=== PATIENT | female | born 1970 | race Caucasian/White ===

== ENCOUNTER 2017-03-10 14:12 | Emergency (ER) | payer MEDICARE ==
[2017-03-10 14:50] LABS: CLARITY,URINE CLOUDY; COLOR,URINE YELLOW
[2017-03-10 14:51] LABS: BACTERIA,URINE FEW /HPF (0-FEW); BILIRUBIN,URINE NEG (NEG); GLUCOSE,URINE NEG (NEG); NITRITE,URINE POS (NEG); SQUAMOUS EPITHELIAL CELL,UR FEW /LPF; UROBILINOGEN,URINE 0.2 mg/dL (0.2 mg/dL); WBC,URINE >40 /HPF (0-4)
[2017-03-10] MEDS ORDERED: IV NORMAL SALINE 1,000ML 1,000 ML IV ONE (16:00)
--- NOTE | 2017-03-10 16:08 | ED.ADGEN ---
Adult General Chief Complaint Chief Complaint Left flank pain HPI HPI Patient is a residual female with history of recurrent urinary tract infection presents with persistent left flank pain, urinary frequency urgency 2 days. Denies fever. Reports nausea denies vomiting. No hematuria or history of kidney stones. No recent antibiotics. Last menstrual period one month ago.[] Review of Systems Review of Systems Review symptoms as per history of present illness. All other review symptoms are negative. All other systems were reviewed and found to be within normal limits, except as documented in this note. Current Medications Current Medications Current Medications Medications (Trade) Dose Ordered Sig/Jeffery Start Time Stop Time Status Last Admin Dose Admin Ceftriaxone Sodium 1 gm/ Sodium Chloride 50 ml @ 100 mls/hr 1X ONCE 03/10/17 16:00 03/10/17 16:24 DC Ceftriaxone Sodium (Rocephin) 1 gm 1X ONCE 03/10/17 16:45 03/10/17 16:46 DC 03/10/17 16:36 1 GM Sodium Chloride 1,000 ml @ 1,000 mls/hr 1X ONCE 03/10/17 16:00 03/10/17 16:59 DC 03/10/17 16:33 1,000 MLS/HR Allergies Allergies Allergies Coded Allergies Type Severity Reaction Last Updated Verified acetaminophen Allergy Unknown 03/10/17 Yes propoxyphene Allergy Unknown 03/10/17 Yes Physical Exam Physical Exam Constitutional: Well developed, well nourished, discomfort secondary to pain.. [ ] HENT: Normocephalic, atraumatic, bilateral external ears normal, oropharynx moist, no oral exudates, nose normal. [] Eyes: PERRLA, EOMI, conjunctiva normal, no discharge. [] Neck: Normal range of motion, no tenderness, supple, no stridor. [] Cardiovascular:Heart rate regular rhythm, no murmur [] Lungs & Thorax: Bilateral breath sounds clear to auscultation [] Abdomen: Bowel sounds normal, soft, suprapubic pain, no rebound rigidity or guarding. [] Back: Left CVA tenderness. [] Extremities: No tenderness, no cyanosis, no clubbing, ROM intact, no edema. [] Neurologic: Alert and oriented X 3, normal motor function, normal sensory function, no focal deficits noted. [] Psychologic: Affect normal, judgement normal, mood normal. [] Current Patient Data Lab Results Laboratory Tests Test 03/10/17 14:30 03/10/17 15:50 03/10/17 16:20 03/10/17 17:00 Urine Collection Type Unknown Urine Color Yellow Urine Clarity Cloudy Urine pH 7.0 Urine Specific [place] 1.010 Urine Protein Neg (NEG-TRACE) Urine Glucose (UA) Neg mg/dL (NEG) Urine Ketones (Stick) Neg mg/dL (NEG) Urine Blood Mod (NEG) Urine Nitrite Pos (NEG) Urine Bilirubin Neg (NEG) Urine Urobilinogen Dipstick 0.2 mg/dL (0.2 mg/dL) Urine Leukocyte Esterase Small (NEG) Urine RBC 3-5 /HPF (0-2) Urine WBC >40 /HPF (0-4) Urine Squamous Epithelial Cells Few /LPF Urine Bacteria Few /HPF (0-FEW) POC Urine HCG, Qualitative hcg negative (Negative) White Blood Count 14.9 x10^3/uL (4.0-11.0) H Red Blood Count 4.20 x10^6/uL (3.50-5.40) Hemoglobin 13.7 g/dL (12.0-15.5) Hematocrit 39.4 % (36.0-47.0) Mean Corpuscular Volume 94 fL (79-100) Mean Corpuscular Hemoglobin 33 pg (25-35) Mean Corpuscular Hemoglobin Concent 35 g/dL (31-37) Red Cell Distribution Width 13.1 % (11.5-14.5) Platelet Count 188 x10^3/uL (140-400) Neutrophils (%) (Auto) 81 % (31-73) H Lymphocytes (%) (Auto) 10 % (24-48) L Monocytes (%) (Auto) 8 % (0-9) Eosinophils (%) (Auto) 1 % (0-3) Basophils (%) (Auto) 1 % (0-3) Neutrophils # (Auto) 12.1 x10^3uL (1.8-7.7) H Lymphocytes # (Auto) 1.4 x10^3/uL (1.0-4.8) Monocytes # (Auto) 1.2 x10^3/uL (0.0-1.1) H Eosinophils # (Auto) 0.1 x10^3/uL (0.0-0.7) Basophils # (Auto) 0.1 x10^3/uL (0.0-0.2) Sodium Level 138 mmol/L (136-145) Potassium Level 3.3 mmol/L (3.5-5.1) L Chloride Level 104 mmol/L (98-107) Carbon Dioxide Level 26 mmol/L (21-32) Anion Gap 8 (6-14) Blood Urea Nitrogen 5 mg/dL (7-20) L Creatinine 0.6 mg/dL (0.6-1.0) Estimated GFR (Cockcroft-Gault) 107.6 Glucose Level 98 mg/dL (70-99) Calcium Level 8.0 mg/dL (8.5-10.1) L EKG EKG [] Radiology/Procedures Radiology/Procedures [] Course & Med Decision Making Course & Med Decision Making Pertinent Labs and Imaging studies reviewed. (See chart for details) [Local pyelonephritis. IV fluids, antibiotics and pain medication given. KS considered but thought less likely. Symptomatically improvement. Lab work reviewed. Recommend continued supportive care, empiric therapy, PCP follow-up and watchful waiting. Return precautions reviewed.] Final Impression Final Impression [#1 left flank pain #2 pyelonephritis] Problems: Dragon Disclaimer Dragon Disclaimer This electronic medical record was generated, in whole or in part, using a voice recognition dictation system. KALI GRISSOM DO Mar 10, 2017 16:08
[2017-03-10 16:40] LABS: BASO # 0.1 x10^3/uL (0.0-0.2); BASO % 1 % (0-3); EOS # 0.1 x10^3/uL (0.0-0.7); EOS % 1 % (0-3); HEMATOCRIT 39.4 % (36.0-47.0); HEMOGLOBIN 13.7 g/dL (12.0-15.5); LYMPH # 1.4 x10^3/uL (1.0-4.8); LYMPH % 10 % (24-48); MEAN CORPUSCULAR HEMOGLOBIN 33 pg (25-35); MEAN CORPUSCULAR HGB CONC 35 g/dL (31-37); MEAN CORPUSCULAR VOLUME 94 fL (79-100); MONO # 1.2 x10^3/uL (0.0-1.1); MONO % 8 % (0-9); NEUT # 12.1 x10^3uL (1.8-7.7); NEUT % 81 % (31-73); PLATELET COUNT 188 x10^3/uL (140-400); RED CELL DISTRIBUTION WIDTH 13.1 % (11.5-14.5); WHITE BLOOD COUNT 14.9 x10^3/uL (4.0-11.0)
[2017-03-10] MEDS ORDERED: cefTRIAXone IV Push 1 GM VIAL. IVP ONE (16:45)
[2017-03-10 17:30] LABS: CREATININE 0.6 mg/dL (0.6-1.0); GFR 107.6; POTASSIUM 3.3 mmol/L (3.5-5.1)
[2017-03-10 17:55] VITALS: BP 132/74
== END 2017-03-10 17:55 | disposition home or self-care (01) ==
LOC: ER 14:12
DX: N12 Tubulo-interstitial nephritis, not specified as acute or chronic (principal); Z87.440 Personal history of urinary (tract) infections; Z88.6 Allergy status to analgesic agent; Z88.8 Allergy status to other drugs, medicaments and biological substances
CPT/HCPCS: 36415; 80048; 81001; 81025; 85025; 87086; 96361; 96374; 99284; J0696; 87186; J7030

== ENCOUNTER 2021-02-07 13:47 | Inpatient (IN) | payer MEDICARE ==
[~2021-02-07] VITALS: Ht 172.7 cm; Wt 65.4 kg
[2021-02-07] MEDS ORDERED: IV NORMAL SALINE 1,000ML 1,000 ML IV ONE (14:00)
--- NOTE | 2021-02-07 14:02 | PHYS DOC ---
Past History Past Medical History: Other Past Surgical History: Tubal ligation Alcohol Use: Rarely Drug Use: None General Adult EDM: Chief Complaint: ALTERED MENTAL STATUS HPI: HPI: 50-year-old female presents via EMS because her family had difficult time waking her up. They told EMS that she frequently has difficulty waking up and did not give description of why today was different. The patient is on Suboxone and took baclofen last night. She tells me that she has been "sick" but does not give a description of what kind of symptoms she is having. Her only complaint is that she is sleepy. She denies nausea, vomiting, diarrhea, cough. She denies taking any extra medications today. Review of Systems: Review of Systems: Constitutional: Denies fever or chills Eyes: Denies change in visual acuity HENT: Denies nasal congestion or sore throat Respiratory: Denies cough or shortness of breath Cardiovascular: Denies chest pain or edema GI: Denies abdominal pain, nausea, vomiting, bloody stools or diarrhea : Denies dysuria Musculoskeletal: Denies back pain or joint pain Integument: Denies rash Neurologic: Sleepy. Denies headache, focal weakness or sensory changes Endocrine: Denies polyuria or polydipsia Lymphatic: Denies swollen glands Psychiatric: Denies depression or anxiety Allergies: Allergies: Allergies Coded Allergies Type Severity Reaction Last Updated Verified acetaminophen Allergy Unknown 03/10/17 Yes propoxyphene Allergy Unknown 03/10/17 Yes Physical Exam: PE: Constitutional: Well developed, well nourished, no acute distress, non-toxic appearance. [] HENT: Normocephalic, atraumatic, bilateral external ears normal, oropharynx moist, no oral exudates, nose normal. [] Eyes: PERRLA, EOMI, conjunctiva normal, no discharge. [] Neck: Normal range of motion, no tenderness, supple, no stridor. [] Cardiovascular: Heart rate regular rhythm, no murmur [] Lungs & Thorax: Bilateral breath sounds clear to auscultation [] Abdomen: Bowel sounds normal, soft, no tenderness, no masses, no pulsatile masses. [] Skin: Warm, dry, no erythema, no rash. [] Back: No tenderness, no CVA tenderness. [] Extremities: No tenderness, no cyanosis, no clubbing, ROM intact, no edema. [] Neurologic: Sleepy but arousable. Alert and oriented X 3, normal motor function, normal sensory function, no focal deficits noted. [] Psychologic: Affect normal, judgement normal, mood normal. [] EKG: EKG: [] Radiology/Procedures: Radiology/Procedures: [] Impressions: EXAM: Head CT without contrast. HISTORY: Altered mental status. TECHNIQUE: Computed tomographic images of the head were obtained without contr ast. *One or more of the following individualized dose reduction techniques were utilized for this examination: 1. Automated exposure control. 2. Adjustment of the mA and/or kV according to patient size. 3. Use of iterative reconstruction technique. COMPARISON: None. FINDINGS: There is no acute or subacute extra-axial or intraparenchymal hemorrhage. There is no mass effect or midline shift. There is no hydrocephalus. The bell-white matter differentiation pattern is intact. The orbits are unremarkable. There is a left bob bullosa. The paranasal sinuses are otherwise unremarkable. The mastoid air cells are clear. There is no suspicious calvarial lesion. IMPRESSION: No acute intracranial finding. Electronically signed by: Nicol Vargas MD (02/07/2021 3:10 PM) [facility] DICTATED AND SIGNED BY: NICOL VARGAS MD DATE: 02/07/21 1510 CC: KALI FRANKEL DO; JENNIFER OWUSU RN, MSN, ONLINE MERCHANDISING COORDINATOR ~MTH0 0 Chest radiograph 02/07/2021 2:38 PM INDICATION: Abnormal radiograph COMPARISON: None available TECHNIQUE: Frontal and lateral views of the chest are provided. FINDINGS: The cardiomediastinal silhouette is within normal limits. There are no pleural effusions. There is no pulmonary vascular congestion. There is no pneumothorax. Perihilar interstitial airspace disease with bronchial wall thickening compatible with nonspecific bronchitis. No significant osseous abnormality is identified. IMPRESSION: Nonspecific bronchitis and perihilar interstitial airspace disease as may seen with interstitial pneumonitis of infectious/inflammatory etiology. Electronically signed by: Gabriele Cloud MD (02/07/2021 2:59 PM) [facility] DICTATED AND SIGNED BY: GABRIELE CLOUD MD DATE: 02/07/21 1457 CC: KALI FRANKEL DO; JENNIFER OWUSU RN, MSN, ONLINE MERCHANDISING COORDINATOR ~MTH0 0 Heart Score: C/O Chest Pain: N/A Risk Factors: Risk Factors: DM, Current or recent (<one month) smoker, HTN, HLP, family history of CAD, obesity. Risk Scores: Score 0 - 3: 2.5% MACE over next 6 weeks - Discharge Home Score 4 - 6: 20.3% MACE over next 6 weeks - Admit for Clinical Observation Score 7 - 10: 72.7% MACE over next 6 weeks - Early Invasive Strategies Course & Med Decision Making: Course & Med Decision Making Pertinent Labs and Imaging studies reviewed. (See chart for details) The patient's EKG is unremarkable. Her chest x-ray had to be repeated because of her breast implants. The repeat film shows possible infectious etiology. See official read for more details. Her head CT is negative for acute findings. I will treat her with Rocephin and azithromycin. The patient's labs are remarkable for an elevated white count with a left shift. Her Covid testing will not be back until at least tomorrow. The patient is much more drowsy than I would expect with this diagnosis had a normal oxygen level on room air. I spoke with hospitalist, Dr. Stuart and he has agreed admit the patient for further observation. Family is in agreement with this plan. [] Dragon Disclaimer: Dragon Disclaimer: This electronic medical record was generated, in whole or in part, using a voice recognition dictation system. Departure Departure: Impression: Primary Impression: Pneumonia Additional Impression: Altered mental status Disposition: ADMITTED INPATIENT Admitting Physician: Lion Stuart Condition: STABLE Referrals: JENNIFER OWUSU RN, MSN, ONLINE MERCHANDISING COORDINATOR (PCP) KALI FRANKEL DO Feb 07, 2021 14:02
--- NOTE | 2021-02-07 14:17 | EKG ---
[address] [address] Test Date: 2021-02-07 Test Time: 14:03:56 Pat Name: TRAY CINTRON Department: Room: Gender: F Back Up Worker: ANABELL : 1970 Requested By: KALI FRANKEL Order Number: [id number] Reading MD: Adrian Sawyer Measurements Intervals [place] Rate: 81 P: 71 MO: 140 QRS: 60 QRSD: 86 T: 100 QT: 382 QTc: 449 Interpretive Statements SINUS RHYTHM Electronically Signed On 02-11-2021 10:34:05 [employer] by Adrian Sawyer
--- NOTE | 2021-02-07 14:24 | RAD ---
EXAMINATION: Chest radiograph. VIEWS: Single AP view of the chest COMPARISON: None INDICATION:50 years, Female, sleepy. FINDINGS: Normal cardiomediastinal silhouette. Bilateral middle and lower lobe symmetric opacities are felt to be from tissue summation. No pleural effusion or pneumothorax. No acute osseous process. IMPRESSION: Bilateral middle and lower lobe symmetric opacities likely from breast tissue summation degrading ashly luation of the pulmonary parenchyma. Recommend further evaluation with lateral radiograph. Electronically signed by: Markos Gonzalez DO (02/07/2021 2:21 PM) [facility]
--- NOTE | 2021-02-07 15:01 | RAD ---
Chest radiograph 02/07/2021 2:38 PM INDICATION: Abnormal radiograph COMPARISON: None available TECHNIQUE: Frontal and lateral views of the chest are provided. FINDINGS: The cardiomediastinal silhouette is within normal limits. There are no pleural effusions. There is no pulmonary vascular congestion. There is no pneumothorax. Perihilar interstitial airspace disease with bronchial wall thickening compatible with nonspecific br onchitis. No significant osseous abnormality is identified. IMPRESSION: Nonspecific bronchitis and perihilar interstitial airspace disease as may seen with interstitial pneu monitis of infectious/inflammatory etiology. Electronically signed by: Alexus Alfaro MD (02/07/2021 2:59 PM) [facility]
--- NOTE | 2021-02-07 15:13 | RAD ---
EXAM: Head CT without contrast. HISTORY: Altered mental status. TECHNIQUE: Computed tomographic images of the head were obtained without contrast. *One or more of the following individualized dose reduction techniques were utilized for this examina tion: 1. Automated exposure control. 2. Adjustment of the mA and/or kV according to patient size. 3. Use of iterative reconstruction technique. COMPARISON: None. FINDINGS: There is no acute or subacute extra-axial or intraparenchymal hemorrhage. There is no mass effect or midline shift. There is no hydrocephalus. The bell-white matter differentiation pattern is intact. The orbits are unremarkable. There is a left bob bullosa. The paranasal sinuses are otherwise unre markable. The mastoid air cells are clear. There is no suspicious calvarial lesion. IMPRESSION: No acute intracranial finding. Electronically signed by: Nicol Spear MD (02/07/2021 3:10 PM) [facility]
[2021-02-07] MEDS ORDERED: AZITHROMYCIN 250 MG TABLET. PO ONE (15:30)
[2021-02-07 15:44] LABS: CALCIUM 8.1 mg/dL (8.5-10.1); CREATININE 0.9 mg/dL (0.6-1.0); GFR 66.3; POTASSIUM 4.1 mmol/L (3.5-5.1)
[2021-02-07 15:49] LABS: BACTERIA,URINE FEW /HPF (0-FEW); BARBITURATES NEG (NEG); BENZODIAZEPINES NEG (NEG); BILIRUBIN,URINE NEG (NEG); CANNABINOIDS NEG (NEG); CLARITY,URINE CLEAR; COCAINE NEG (NEG); COLOR,URINE YELLOW; GLUCOSE,URINE NEG (NEG); METHADONE NEG (NEG); NITRITE,URINE NEG (NEG); OPIATES NEG (NEG); PHENCYCLIDINE NEG (NEG); RBC,URINE 0 /HPF (0-2); SQUAMOUS EPITHELIAL CELL,UR MOD /LPF; UROBILINOGEN,URINE 0.2 mg/dL (0.2 mg/dL); WBC,URINE OCC /HPF (0-4)
[2021-02-07 15:49] LABS: ALBUMIN 3.9 g/dL (3.4-5.0); ALBUMIN/GLOBULIN RATIO 1.2 (1.0-1.7); TOTAL BILIRUBIN 0.3 mg/dL (0.2-1.0); TOTAL PROTEIN 7.2 g/dL (6.4-8.2)
[2021-02-07 15:51] LABS: BASO % 0 % (0-3); EOS % 0 % (0-3); HEMATOCRIT 42.4 % (36.0-47.0); HEMOGLOBIN 13.9 g/dL (12.0-15.5); LYMPH # 0.9 x10^3/uL (1.0-4.8); LYMPH % 4 % (24-48); MEAN CORPUSCULAR HEMOGLOBIN 31 pg (25-35); MEAN CORPUSCULAR HGB CONC 33 g/dL (31-37); MEAN CORPUSCULAR VOLUME 93 fL (79-100); MONO # 0.9 x10^3/uL (0.0-1.1); MONO % 4 % (0-9); NEUT # 19.7 x10^3uL (1.8-7.7); NEUT % 91 % (31-73); PLATELET COUNT 257 x10^3/uL (140-400); RED BLOOD COUNT 4.56 x10^6/uL (3.50-5.40); WHITE BLOOD COUNT 21.5 x10^3/uL (4.0-11.0)
[2021-02-07 15:51] LABS: AMPHETAMINE/METHAMPHETAMINE NEG (NEG)
[2021-02-07] MEDS ORDERED: IV NORMAL SALINE 50ML 50 ML ONE (16:09)
[2021-02-07] MEDS ORDERED: cefTRIAXone SODIUM 1 GM VIAL ONE (16:09)
[2021-02-07] MEDS ORDERED: DEXAMETHASONE SOD PHOS 10 MG/ML VIAL. IVP ONE (16:15)
[2021-02-07] MEDS ORDERED: ONDANSETRON PF 4 MG/2 ML VIAL. IVP PRN (16:15)
[2021-02-07 16:25] LABS: % BANDS 1 % (0-9); % LYMPHS 5 % (24-48); % MONOS 4 % (0-10); % SEGS 90 % (35-66); PLT ESTIMATE ADEQUATE (ADEQUATE)
[2021-02-07] MEDS ORDERED: PREG100C PO (16:56)
[2021-02-07] MEDS ORDERED: BACL10TA PO (16:56)
[2021-02-07] MEDS ORDERED: TRAZ-125 PO (16:56)
[2021-02-07] MEDS ORDERED: LEVO112T2 PO (16:56)
[2021-02-07] MEDS ORDERED: DICL50TA4 PO (16:56)
[2021-02-07] MEDS ORDERED: HYDR-2145 PO (16:56)
[2021-02-07] MEDS ORDERED: BUPR1FIL5 SL (16:56)
[2021-02-07] MEDS ORDERED: TOPI50TA38 PO (16:56)
[2021-02-07] MEDS ORDERED: ESCITALOPRAM OX20 MG PO (16:56)
[2021-02-07] MEDS ORDERED: CYCL10TA19 PO (16:56)
[2021-02-07] MEDS ORDERED: BUPR150T11 PO (16:56)
[2021-02-07] MEDS ORDERED: SUMA100T3 PO (16:56)
--- NOTE | 2021-02-07 18:37 | NUR ---
PATIENT IS A 50 Y O FEMALE ARRIVED VIA EMS, ADMITTED BY DR. TODD. VS OBTAINED, BELONGINGS OBTAINED. PATIENT IS CURRENTLY IN A BED AWAKE.
[2021-02-07 18:57] VITALS: BP 101/63
[2021-02-07 22:50] VITALS: BP 114/69
[2021-02-07] MEDS ORDERED: BUPR1TAB SL (23:25)
[2021-02-08 06:06] VITALS: BP 136/81
--- NOTE | 2021-02-08 10:05 | HP ---
DATE OF SERVICE: 02/08/2021 ADMIT DATE: 02/07/2021 ATTENDING PHYSICIAN: Dr. Stuart. CHIEF COMPLAINT: Altered mentation. HISTORY OF PRESENT ILLNESS: The patient is a 50-year-old female admitted through the ED with sleepiness and difficulty waking her up. She is on multiple muscle relaxant. In addition, she is on Suboxone for chronic pain meds. She also took some baclofen and cyclobenzaprine. The workup in the ER was fairly unremarkable. There is no active infection. She has not been vaccinated. She was brought in. She was admitted overnight for observation. PAST MEDICAL HISTORY: Significant for tubal ligation. She has chronic depression. She is also on Suboxone for chronic pain. She sees a nurse practitioner at the [facility]. Her medications are as follows ALLERGIES: SHE HAS ALLERGIES TO TYLENOL AND PROPOXYPHENE. CURRENT MEDICINES: Include Flexeril p.r.n., baclofen, BusPar, diclofenac, hydrochlorothiazide, Synthroid, Lyrica, sumatriptan, Topamax, trazodone and supposedly Suboxone. SOCIAL HISTORY: She is a smoker. She denies any recreational drug use at this time. FAMILY HISTORY: Noncontributory. Parents are alive at age 71 and 72 respectively. They are otherwise healthy. REVIEW OF SYSTEMS: Significant for depression. She has some questionable issues and concerns, I did not go into detail. All other systems reviewed and turned to be negative. PHYSICAL EXAMINATION: GENERAL: When I saw her, this is a pleasant, middle-aged female. VITAL SIGNS: Her initial vital signs showed a blood pressure of 114/89, pulse is 70 and regular. She was afebrile, oxygen saturation 95% on room air. HEENT: Head is without trauma. Pupils are reactive. Sclerae nonicteric. Oropharynx is clear. NECK: Supple, no bruits identified. LUNGS: Clear. CARDIOVASCULAR: Regular heart tones. No gallop. ABDOMEN: Soft. EXTREMITIES: Without edema. NEUROLOGIC: Focally intact. Speech is fluent. She was fully awake when I saw her. LABORATORY DATA: Admission hemoglobin was 13.9 g/dL, white count 21,000. Electrolytes, BUN and creatinine all within normal range. Cardiac enzymes negative. The obligatory CT of the head showed no acute changes, strokes or bleeds. Chest x-ray was clear. ASSESSMENT: 1. A 50-year-old female with obtundation related to her scheduled Flexeril and combination of muscle relaxant, Suboxone use. 2. Underlying depression with anxiety. 3. Chronic pain syndrome, on Suboxone. PLAN: 1. Observation status. 2. Home meds have been held. 3. Diet as tolerated. VICKY DR: Suzanne TID: [id number]
--- NOTE | 2021-02-08 10:20 | NUR ---
PT DISCHARGING HOME VIA SON COMING TO FINE DINING SERVER AT MAIN ENTRANCE. PT GIVEN ALL MEDICATIONS IN PACKET THAT WAS IN THE PHARMACY. MEDICATION PACK NUMBER [id number]. OJHNNY RN SECOND NURSE TO VERIFY RETURNED MEDICATIONS WELL PT STATING THAT SHE STILL HAS ALL 320.00 OF NEGRITO BONUS MONEY WITH ALL BELONGINGS AT THE TIME OF DISCHARGE. HANDOUTS GIVEN TO THE PT AT THE TIME OF DISCHARGE. PT ENCOURAGED TO FOLLOW UP WITH PCP TODAY AND LET THEM KNOW THAT SHE WAS HOSPITALIZED AND THE REASON FOR ADMISSION. PT GIVEN EDUCATION AND IS TO TAKE HOME. PT STATES UNDERSTANDING.
--- NOTE | 2021-02-08 10:45 | NUR ---
PT AMBULATED TO THE FRONT WITH STAFF WHERE SON WAS HERE TO PICK HER UP AT APPROX 1045.
--- NOTE | 2021-02-08 12:21 | DS ---
DATE OF DISCHARGE: 02/08/2021 ATTENDING PHYSICIAN: Dr. Stuart. FINAL DISCHARGE DIAGNOSES: 1. Altered mentation due to medication. 2. Underlying depression with anxiety. 3. History of chronic pain syndrome, on current Suboxone. HISTORY AND PHYSICAL: The patient is a 50-year-old female who was prescribed Suboxone along with Flexeril and baclofen. She took some extra doses and was very sleepy. She was admitted from the ED for observation overnight. PHYSICAL EXAMINATION: Please see the dictated note. PERTINENT LABORATORY AND X-RAY STUDIES: The admission hemoglobin was 13.9 g/dL. White count had a leukocytosis of 21,500. No obvious infection identified. Electrolytes, BUN and creatinine, and cardiac enzymes are all within normal range. The obligatory CT of the head showed no acute changes. Chest x-ray was unremarkable. There is some perihilar interstitial airspace disease. Clinically, she did not have any pneumonia at this time. She is a smoker as noted. COURSE IN THE HOSPITAL: The patient was admitted overnight. We held her medications. When I examined her, she was stable. She did not have any active infection. No cough, fevers or chills. Vital signs were quite stable. By the next hospital day, she was ready for discharge. I strongly encouraged her to avoid further use of her cyclobenzaprine and the baclofen. She is on her Suboxone dose as scheduled per her provider. BuSpar, Synthroid, Imitrex p.r.n., and Topamax dose is unchanged. She will follow up with her PCP. Strong encouragement to avoid further tobacco use and to get vaccinated. Whether or not she will proceed remains to be seen. As an addendum, her rapid COVID serology was negative. She was discharged then from our hospital in a stable condition with explicit drug and followup care. DEBRA/SEBASTIÁN DR: Suzanne TID: [id number]
== END 2021-02-08 10:45 | disposition home or self-care (01) | DRG 70 ==
LOC: ER 13:47 → 1 SOUTH 16:08
PROVIDERS: ADMIT Hospitalist; ATTEND Hospitalist
DX: G93.41 Metabolic encephalopathy (principal); J18.9 Pneumonia, unspecified organism; G89.29 Other chronic pain; F32.A Depression, unspecified; F17.200 Nicotine dependence, unspecified, uncomplicated; F41.8 Other specified anxiety disorders; T50.7X5A Adverse effect of analeptics and opioid receptor antagonists, initial encounter; Z88.8 Allergy status to other drugs, medicaments and biological substances; Z98.51 Tubal ligation status; Y92.89 Other specified places as the place of occurrence of the external cause; Z20.822 Contact with and (suspected) exposure to COVID-19
CPT/HCPCS: 36415; 70450; 71045; 71046; 80053; 80307; 81001; 84484; 85007; 85025; 87426; 93005; 96360; J0696; J1100; J2405; U0003; 99285-25; J7030

== ENCOUNTER 2021-03-24 14:24 | Emergency (ER) | payer MEDICARE ==
[~2021-03-24] VITALS: Ht 172.7 cm; Wt 62.3 kg
[~2021-03-24 14:24] MED LIST: BACL10TA PO; BUPR150T11 PO; BUPR1FIL5 SL; BUPR1TAB SL; CYCL10TA19 PO; DICL50TA4 PO; ESCITALOPRAM OX20 MG PO; HYDR-2145 PO; LEVO112T2 PO; PREG100C PO; SUMA100T3 PO; TOPI50TA38 PO; TRAZ-125 PO
[2021-03-24 16:14] VITALS: BP 135/80
[2021-03-24] MEDS ORDERED: IV NORMAL SALINE 1,000ML 1,000 ML IV ONE ×2 (17:00→17:45)
[2021-03-24] MEDS ORDERED: ONDANSETRON PF 4 MG/2 ML VIAL. IVP ONE (17:00)
[2021-03-24] MEDS ORDERED: diphenhydrAMINE 50 MG/ML VIAL IVP ONE (17:45)
[2021-03-24] MEDS ORDERED: PROCHLORPERAZINE 10 MG/2 ML VIAL. IV ONE (17:45)
--- NOTE | 2021-03-24 17:47 | PHYS DOC ---
Past History Past Medical History: Other Additional Past Medical Histor: pain from occipital nerve Past Surgical History: Other Additional Past Surgical Histo: THYROID, WRIST SURGERY, BREAST AUGMENTATION Alcohol Use: Rarely Drug Use: None Adult General Chief Complaint Chief Complaint: FLU SYMPTOM HPI HPI Patient is a 50 year old female who presents with viral symptoms and GI upset. Patient has been ill over the last week. She was evaluated 5 days earlier at an urgent care where she tested positive for influenza. She was treated with Au gmentin for presumed bacterial pneumonia and also Tamiflu. 2 days after starting these therapies, she began to have significant GI upset. She complains of nausea and vomiting which has worsened over the last 3 days. Unable to hold down any food or fluids. Does not complain of abdominal pain. Her viral symptoms have improved other than her GI symptoms. No hematemesis. No ongoing fever. She reports inability to hold down any food or fluids in the last 24 hours. Has ongoing fatigue and malaise. She completed her course of Tamiflu yesterday. Review of Systems Review of Systems Constitutional: Malaise and fatigue Eyes: Denies HENT: Denies nasal congestion Respiratory: Mild cough symptoms that are improving Cardiovascular: No additional information not addressed in HPI GI: As documented in HPI : Denies Musculoskeletal: Denies back pain Integument: Denies rash Neurologic: Denies All other systems were reviewed and found to be within normal limits, except as documented in this note. Current Medications Current Medications Current Medications Medications (Trade) Dose Ordered Sig/Jeffery Start Time Stop Time Status Last Admin Dose Admin Diphenhydramine HCl (Benadryl) 12.5 mg 1X ONCE 03/24/21 17:45 03/24/21 17:46 Ondansetron HCl (Zofran) 4 mg 1X ONCE 03/24/21 17:00 03/24/21 17:01 DC 03/24/21 17:06 4 MG Prochlorperazine Edisylate (Compazine) 5 mg 1X ONCE 03/24/21 17:45 03/24/21 17:46 Sodium Chloride 1,000 ml @ 1,000 mls/hr 1X ONCE 03/24/21 17:45 03/24/21 18:44 Allergies Allergies Allergies Coded Allergies Type Severity Reaction Last Updated Verified acetaminophen Allergy Unknown 03/24/21 Yes propoxyphene Allergy Unknown 1/9/22 Yes Physical Exam Physical Exam Constitutional: Well developed, well nourished, no acute distress but ill- appearing HENT: Mucous membranes dry, posterior oropharynx clear. TMs normal. Eyes: PERRLA, EOMI, conjunctiva normal, no discharge. Neck: Normal range of motion, no tenderness Cardiovascular:Heart rate regular rhythm, no murmur Lungs & Thorax: Bilateral breath sounds clear to auscultation Abdomen: Soft nontender Skin: Warm, dry, no erythema, no rash. Extremities: No tenderness, no cyanosis, no clubbing, ROM intact, no edema Neurologic: Alert and oriented X 3 Psychologic: Affect normal Current Patient Data Vital Signs Vital Signs Date Time Temp Pulse Resp B/P (MAP) Pulse Ox O2 Delivery O2 Flow Rate FiO2 03/24/21 16:14 97.5 80 18 135/80 (98) 96 Room Air EKG EKG [] Radiology/Procedures Radiology/Procedures [] Heart Score C/O Chest Pain: No Risk Factors: Risk Factors: DM, Current or recent (<one month) smoker, HTN, HLP, family history of CAD, obesity. Risk Scores: Risk Factors: DM, Current or recent (<one month) smoker, HTN, HLP, family history of CAD, obesity. Course & Med Decision Making Course & Med Decision Making Pertinent Labs and Imaging studies reviewed. (See chart for details) 17:00: Patient is seen and examined. Overall no distress although she does a ppear ill and mildly dehydrated. Today, we will check basic labs and give IV fluids. Zofran is ordered for symptom relief. 18:00: Patient was reexamined. She is receiving IV fluids. She feels mildly improved but has ongoing complaint of nausea. Compazine and Benadryl ordered. Will give additional IV fluid. Will check basic labs. Transfer of care to Dr. Theodore. Please follow-up on labs and symptom improvement. Dragon Disclaimer Dragon Disclaimer This electronic medical record was generated, in whole or in part, using a voice recognition dictation system. Departure Departure: Impression: Primary Impression: Nausea & vomiting Disposition: 30 STILL A PATIENT Condition: IMPROVED Referrals: JENNIFER OWUSU RN, MSN, BUYERS' AGENT (PCP) JOSHUA JOHNSON DO Mar 24, 2021 17:47
[2021-03-24 18:30] LABS: BASO % 0 % (0-3); EOS % 0 % (0-3); HEMATOCRIT 39.5 % (36.0-47.0); HEMOGLOBIN 13.3 g/dL (12.0-15.5); LYMPH # 2.5 x10^3/uL (1.0-4.8); LYMPH % 31 % (24-48); MEAN CORPUSCULAR HEMOGLOBIN 31 pg (25-35); MEAN CORPUSCULAR HGB CONC 34 g/dL (31-37); MEAN CORPUSCULAR VOLUME 91 fL (79-100); MONO # 0.7 x10^3/uL (0.0-1.1); MONO % 8 % (0-9); NEUT # 4.8 x10^3uL (1.8-7.7); NEUT % 60 % (31-73); PLATELET COUNT 267 x10^3/uL (140-400); RED BLOOD COUNT 4.34 x10^6/uL (3.50-5.40); RED CELL DISTRIBUTION WIDTH 13.8 % (11.5-14.5)
[2021-03-24] MEDS ORDERED: ACETAMINOPHEN/CODEINE 300/30MG 4TABLET STARTPACK. PO ONE (19:00)
[2021-03-24] MEDS ORDERED: ONDANSETRON 4MG ODT 4TABLET STARTPACK. PO ONE (19:00)
== END 2021-03-24 19:05 | disposition home or self-care (01) ==
LOC: ER 14:24
DX: R11.2 Nausea with vomiting, unspecified (principal); R53.83 Other fatigue; R53.81 Other malaise; Z20.822 Contact with and (suspected) exposure to COVID-19; Z88.8 Allergy status to other drugs, medicaments and biological substances
CPT/HCPCS: 36415; 85025; 96361; 96374; 96375; 99284; C9803; J0780; J1200; J2405; J7030; Q0162; U0003